=== PATIENT | male | born 1980 | race Caucasian/White ===

== ENCOUNTER 2017-08-05 10:00 | Outpatient (CLI) | payer OTHER ==
[~2017-08-05 10:00] MED LIST: PERCOCET 5/3251 TAB PO; RECTICARE30 GM TP
== END 2017-08-05 10:24 | disposition home or self-care (01) ==
LOC: NUCLEAR 10:00
DX: I82.503 Chronic embolism and thrombosis of unspecified deep veins of lower extremity, bilateral (principal)

== ENCOUNTER → 2020-05-04 | Outpatient (CLI) | payer OTHER | END | disposition home or self-care (01) | LOC: TOM 14:22 | PROVIDERS: ATTEND Specialist | DX: M79.642 Pain in left hand (principal) ==

== ENCOUNTER 2022-07-01 09:11 | Emergency (ER) | payer OTHER ==
[~2022-07-01] VITALS: Ht 180.3 cm; Wt 103.9 kg
== END 2022-07-01 17:51 | disposition home or self-care (01) ==
LOC: ER 09:11
DX: I82.409 Acute embolism and thrombosis of unspecified deep veins of unspecified lower extremity (principal); D68.9 Coagulation defect, unspecified

== ENCOUNTER 2022-11-21 08:26 | Outpatient (CLI) | payer OTHER | END 2022-11-21 08:30 | disposition home or self-care (01) | LOC: NUCLEAR 08:26 | PROVIDERS: ATTEND Internal Medicine Hematology & Oncology | DX: I82.402 Acute embolism and thrombosis of unspecified deep veins of left lower extremity (principal) ==

== ENCOUNTER 2023-06-09 08:57 | Outpatient (CLI) | payer OTHER | END 2023-06-09 08:58 | disposition home or self-care (01) | LOC: NUCLEAR 08:57 | PROVIDERS: ATTEND Internal Medicine Hematology & Oncology | DX: I87.2 Venous insufficiency (chronic) (peripheral) (principal) ==

== ENCOUNTER 2024-08-19 11:39 | Emergency (ER) | payer OTHER ==
[~2024-08-19] VITALS: Ht 180.3 cm; Wt 108.9 kg
[2024-08-19 15:29] LABS: CALCIUM 9.1 mg/dL (8.5-10.1); CREATININE SERUM 0.93 mg/dL (0.70-1.30); GFR 87.86; POTASSIUM 4.67 mEq/L (3.5-5.1)
[2024-08-19 15:46] LABS: BASO % 0.7 % (0.1-1.2); EOS # 0.39 (0.04-0.54); EOS % 2.9 % (0.7-7.0); HEMATOCRIT 46.5 % (40.1-51.0); HEMOGLOBIN 15.7 g/dL (13.7-17.5); LYMPH # 3.69 (1.18-3.74); MEAN CORPUSCULAR HEMOGLOBIN 29.4 pg (25.6-32.2); MONO # 0.81 (0.24-0.82); MONO % 5.9 % (4.7-12.5); NEUT # 8.58 (1.56-6.13); NEUT % 62.8 % (34.0-71.1); PLATELET COUNT 284 K/uL (163-369); RED BLOOD COUNT 5.34 M/uL (4.63-6.08); RED CELL DISTRIBUTION WIDTH 13.4 % (11.6-14.4)
== END 2024-08-19 15:37 | disposition home or self-care (01) ==
LOC: ER 11:49
PROVIDERS: General Practice
DX: M79.605 Pain in left leg (principal)